=== PATIENT | male | born 1990 | race Caucasian/White ===

== ENCOUNTER 2023-07-08 14:54 | Emergency (ER) | payer OTHER, SELFPAY ==
[2023-07-08 15:25] VITALS: BP 141/73; PULSE 105; RESP 18; TEMP 37.5; O2SAT 98; BMI 34.0
--- NOTE | 2023-07-08 15:33 | XR_ITS ---
FINAL REPORT CLINICAL HISTORY: CONGESTION and cough since last . no chest surgeries. COMPARISON: None FINDINGS: Two views of the chest were obtained. The heart size and pulmonary vascularity are within normal limits. The mediastinum is normal. There is a lateral left upper lobe opacity worrisome for pneumonia. There is no pneumothorax. The bony thorax is intact. IMPRESSION: Lateral left upper lobe opacity worrisome for pneumonia. Follow-up radiographs are suggested. Reviewed, Interpreted and Dictated by Yuriy Navarro III, MD Transcribed by Ewelina Ratliff Authenticated and [facility]
--- NOTE | 2023-07-08 15:49 | EXP.UTC ---
Discharge Plan Disposition Patient Disposition: Home, Self-Care Condition: Good Prescriptions Prescriptions: New cefdinir 300 mg capsule 300 mg PO BID Qty: 20 0RF guaifenesin [Mucinex] 600 mg tablet extended release 12hr 1,200 mg PO BID PRN (Reason: cough) Qty: 20 0RF azithromycin [Zithromax Z-Josh] 250 mg tablet See Rx Instructions .ROUTE .COMPLEX 5 Days Qty: 6 0RF Rx Instructions: For 250 mg dose pack: take 500 mg today (day 1), then 250 mg for 4 days (days 2-5) prednisone [prednisone] 20 mg tablet 20 mg PO BID 5 Days Qty: 10 0RF Referrals Follow up/Referrals: Noreen Galo [Primary Care Provider] - See instructions Activity Restrictions/Add. Instructions Additional Instructions/Restrictions: Start oral Cefdinir and Prednisone Tomorrow Start azithromycin today. Be sure to complete entire prescription even if feeling better Monitor temp. Tylenol every 4 hours as needed and / or ibuprofen every 6 hours as needed ( As long as your primary care physician has told you that it ok to take both. For fever/aches/pains ER if no less than 101 despite Tylenol or Motrin Mucinex for your cough Be sure to drink lots of water. Follow up IMMEDIATELY for new or worsening of symptoms OR no noticeable improvement over the next 48-72 hours. 911 immediately for any life threatening symptoms such as chest pain or difficulty breathing Follow up with your Family Doctor in a few weeks for recheck to make sure that pneumonia is clearing Clinical Impressions Clinical Impression: Pneumonia Qualifiers: Pneumonia type: due to unspecified organism Laterality: left Lung location: upper lobe of lung Qualified Code(s): J18.9 - Pneumonia, unspecified organism Stand Alone Forms Stand Alone Forms: Work/School Release Instructions Patient Instructions: Pneumonia-Adult, Azithromycin, Cefdinir Discharge ED Provider: Nora Vasquez [facility] [place] General Stated complaint: wheezing, sore throat, Mode of Arrival: Ambulatory Source of Information: Patient Limitations: No Limitations Time Seen by Provider: 07/08/23 15:49 Description of Symptoms (Recalled from Triage Doc. by RN): fever, chills, sore throat, yellowish-brown discharge , chest congestion, WEST, and loss of appetite. HEENT Symptoms (Recalled from RN notes): Yes Resp Symptoms (Recalled from RN notes): No Skin Symptoms (Recalled from RN notes): No MS Symptoms (Recalled from RN notes): No Functional Status (Recalled from RN notes): n/.a History of Present Illness Provider Complaint: Patient states that he started feeling bad last week and has continued to get worse States that he was having sore scratchy throat and chest congestion but then yesterday started with body aches, chills, coughing up mucous at times and over all not feeling well so today when he was still feeling ill he came in to get checked Related Data Previous Rx's Medication Instructions Recorded azithromycin 250 mg tablet See Rx Instructions PO .COMPLEX 5 07/08/23 (Zithromax Z-Josh) days #6 tabs cefdinir 300 mg capsule 300 mg PO BID #20 caps 07/08/23 guaifenesin 600 mg tablet, 1,200 mg PO BID PRN cough #20 tabs 07/08/23 extended release 12 hr (Mucinex) prednisone 20 mg tablet 20 mg PO BID 5 days #10 tabs 07/08/23 Allergies Allergy/AdvReac Type Severity Reaction Status Date / Time acetaminophen Allergy Verified 07/08/23 15:37 [From Tylenol-Codeine #3] codeine Allergy Verified 07/08/23 15:37 [From Tylenol-Codeine #3] Worker's Comp Is this a Worker's Comp case?: No [facility] Disclaimer: The information contained in this section may have been updated after the patient was seen, as this information can be updated by other users. Social History Smoking Status: Unknown if ever smoked alcohol intake: never current occupational status: employed Travel in the last 8 weeks: None ROS Obtained: Yes All systems reviewed & no additional complain
[2023-07-08 15:58] LABS: UTC Influenza A Antigen Negative (Negative); UTC Influenza B Antigen Negative (Negative); UTC Strep Screen (Rapid) Negative (Negative)
[2023-07-08 17:48] VITALS: BP 141/84; PULSE 76; RESP 18; TEMP 36.8; O2SAT 99
== END 2023-07-08 17:47 | disposition home or self-care (01) ==
PROVIDERS: Emergency Provider Nurse Practitioner; PCP Family Medicine
DX: J18.1 Lobar pneumonia, unspecified organism (principal); R06.2 Wheezing; R07.0 Pain in throat; R50.9 Fever, unspecified; R09.89 Other specified symptoms and signs involving the circulatory and respiratory systems; R51.9 Headache, unspecified
CPT/HCPCS: 71046; 87635; 87804; 87880; 96372; 99204; 99212; G0463; J0696